=== PATIENT | female | born 1955 | race Caucasian/White ===

== ENCOUNTER 2024-12-04 08:00 | Day surgery (SDC) | payer MEDICARE, SELFPAY ==
[2024-12-04] VITALS (10 sets, daily range): BP systolic 119–156; BP diastolic 70–104; PULSE 82–104; RESP 11–21; TEMP 36.2–36.3; O2SAT 96–100; BMI 36.1
[2024-12-04] MEDS: BENZOCAINE 20% (Hurricaine) SPRAY 1 DOSE TOP (09:47)
[2024-12-04] MEDS: SODIUM CHLORIDE 0.9% 500 ML 500 ML 20 ML IV (09:47)
[2024-12-04] MEDS: fentaNYL CIT INJ 50 mCg/ML AMP 2ML (ASD USE ONLY) IVP (09:48)
[2024-12-04] MEDS: DiphenhydrAMINE INJ 50 MG/ML VIAL 25 MG IVP (09:50)
[2024-12-04] MEDS: MIDAZOLAM INJ 1 MG/ML VIAL 2 ML (ASD USE ONLY) 2 MG IVP (09:52)
== END 2024-12-04 10:45 | disposition home or self-care (01) ==
PROVIDERS: PCP Nurse Practitioner Family; Referring Provider Specialist; Visit Provider Specialist
PROC: (CPT 43239; principal; 2024-12-04 09:00)
DX: K22.2 Esophageal obstruction (principal); K29.70 Gastritis, unspecified, without bleeding; K26.9 Duodenal ulcer, unspecified as acute or chronic, without hemorrhage or perforation
CPT/HCPCS: 43248; 43249; C1726; C1769; J1200; J2250; J3010; J7040; A9270